=== PATIENT | male | born 1930 | race Caucasian/White ===

== ENCOUNTER 2017-10-05 17:51 | Emergency (ER) | payer MEDICARE, OTHER ==
[2017-10-05 19:05] VITALS: BP 198/90
--- NOTE | 2017-10-05 19:08 | UC ---
Complaint Male HPI - HPI Summary HPI Summary: 86 yo male presents with penile redness, itching, and swelling. He says he noticed this about a week ago after finishing anbx for a cough a week prior. He denies fever, chills, dysuria, or concern for STDs. - History of Current Complaint Chief Complaint: UCGU Stated Complaint: PRIVATE ISSUE Hx Obtained From: Patient Severity Currently: None Pain Intensity: 0 - Allergies/Home Medications Allergies/Adverse Reactions: Allergies Allergy/AdvReac Type Severity Reaction Status Date / Time No Known Allergies Allergy Verified 10/12/12 12:59 Home Medications: Home Medications Acetaminophen [Tylenol] 10/05/17 [History] Atenolol TAB* [Tenormin TAB* 25 MG] 10/05/17 [History] Benzonatate CAP* [Tessalon 100 MG CAP*] 10/05/17 [History] Losartan TAB* [Cozaar TAB*] 10/05/17 [History] PMH/Surg Hx/FS Hx/Imm Hx Cardiovascular History: Hypertension - Surgical History Surgical History: Yes Surgery Procedure, Year, and Place: 1975-kidney donation - Family History Known Family History: Positive: Hypertension - Social History Occupation: Retired Lives: With Family Alcohol Use: None Substance Use Type: None Smoking Status (MU): Never Smoked Tobacco Review of Systems Constitutional: Negative Skin: Other - Penile redness and irritation Respiratory: Negative Cardiovascular: Negative Gastrointestinal: Negative Genitourinary: Vaginal/Penile Itching Neurological: Negative Psychological: Negative All Other Systems Reviewed And Are Negative: Yes Physical Exam - Summary Physical Exam Summary: GENERAL: NAD. WDWN. No pain distress. SKIN: See exam. No streaking, bleeding, or drainage. NECK: Supple. Nontender. No lymphadenopathy. CHEST: No accessory muscle use. Breathing comfortably and in no distress. CV: Pulses intact NEURO: Alert. CN II-XII grossly intact. PSYCH: Age appropriate behavior. Triage Information Reviewed: Yes Vital Signs: Initial Vital Signs Temp 98.5 F 10/05/17 18:57 Pulse 58 10/05/17 18:57 Resp 16 10/05/17 18:57 BP 198/90 10/05/17 18:57 Pulse Ox 99 10/05/17 18:57 Vital Signs Reviewed: Yes Male Genital Exam: Positive: Other - Uncircumcised penis. Easily retractable foreskin with erythema and irritated skin to glans penis. Scant clear/white discharge. Negative: Epididymal Tenderness, Inguinal Tenderness, Lesions, Scrotum Tenderness (R), Scrotum Tenderness (L), Testicular Tenderness (R), Testicular Tenderness (L), Urethral Discharge Complaint Male Course/Dx - Course Course Of Treatment: Yeast infection - Differential Dx/Diagnosis Provider Diagnoses: Yeast infection Discharge - Sign-Out/Discharge Documenting (check all that apply): Patient Departure - Discharge Plan Condition: Stable Disposition: HOME Prescriptions: Fluconazole 150 MG (NF) [Diflucan 150 mg (NF)] 150 mg PO ONCE #1 tab Nystatin CREAM* [Nystatin Cream*] 1 applic TOPICAL BID #1 tube Patient Education Materials: Skin Yeast Infection (ED) Referrals: No Primary Care Phys,NOPCP [Primary Care Provider] - Additional Instructions: If you develop a fever, shortness of breath, chest pain, new or worsening symptoms - please call your PCP or go to the ED. Your blood pressure was high at todays visit. Please see your primary provider within 4 weeks for recheck and re-evaluation. - Billing Disposition and Condition Condition: STABLE Disposition: Home
== END 2017-10-05 19:22 | disposition home or self-care (01) ==
LOC: UCEAST 17:51
DX: B37.49 Other urogenital candidiasis (principal); I10 Essential (primary) hypertension
CPT/HCPCS: 99202; G0463